=== PATIENT | female | born 1975 | race Caucasian/White ===

== ENCOUNTER 2018-09-22 01:31 | Outpatient (CLI) | payer OTHER, SELFPAY ==
[2018-09-22] MEDS: Gadoterate meglumine 20 ML VIAL 13 ML IVP (09:24)
[2018-09-22] MEDS: Normal Saline Flush 10 ML SYR IVP (09:25)
--- NOTE | 2018-09-22 09:43 | DI.MRI_ITS ---
SYMPTOM/DIAGNOSIS: FIBROIDS, D21.9, LLQ ABD MASS, R19.04, ? SARCOMA OR ADENOMYOSIS PELVIC MRI: MRI examination of the pelvis was performed according to the usual protocol including pre and post contrast T 1 fat sat imaging. No pelvic adenopathy identified. No free fluid in the pelvis. Visualized bowel is unremarkable. There are multiple ovarian follicles noted bilaterally as well as a 23 mm. in diameter left dominant follicle or functional cyst. The requisition raises the possibility of adenomyosis. The junctional zone of the myometrium appears to be less than 8 mm. in thickness and there is no evident adenomyosis. There are multiple uterine fibroids which are clearly defined as low signal masses on T 2 weighted imaging, the largest of these involve the lower uterine segment and measure about 29 mm. in diameter and 23 mm. in diameter. There is a 5-6 cm. in diameter, heterogeneous mass which is predominantly of intermediate to high signal on T 2 weighted imaging and shows significant enhancement on post contrast imaging. There are prominent feeding vessels. The findings as described may represent a degenerating fibroid. The possibility of sarcomatous transformation of a fibroid is not excluded on the basis of this examination. CONCLUSION: Multiple uterine fibroids, a dominant 5-6 cm. in diameter mass of the uterine fundus is noted and may represent degenerating fibroid, malignant transformation not excluded. No specific evidence of adenomyosis.
== END 2018-09-22 01:51 ==
PROVIDERS: PCP Family Medicine; Visit Provider Obstetrics & Gynecology Gynecology
DX: D25.9 Leiomyoma of uterus, unspecified (principal); R19.04 Left lower quadrant abdominal swelling, mass and lump
CPT/HCPCS: 72197

== ENCOUNTER 2019-07-04 01:16 | Outpatient (CLI) | payer OTHER, SELFPAY ==
--- NOTE | 2019-07-04 08:04 | DI.US_ITS ---
EXAM: US PELVIS TRANSVAGINAL CLINICAL HISTORY: Hx fibroids - 16 week uterus on exam, d25.9 leiomyoma of uterus TECHNIQUE: Ultrasound performed using standard protocol. Transabdominal and transvaginal exams wer e performed. COMPARISON: PELVIS TRANSVAG from 11/16/2017 FINDINGS: The uterus measures 15.2 by 6.2 x 8.4 cm. Multiple fibroids are noted. The largest fibroid is near the fundus measuring 7.2 cm in greatest dimension. This appears to have increased when compared wit h the previous exam. The endometrial stripe measures 8 millimeters in thickness. A small cyst is see n on the left ovary. The right ovary is unremarkable. There is no free fluid or hydronephrosis. IMPRESSION: Enlarged uterus with multiple fibroids. The fibroids have increased in size since the previous exam.
== END 2019-07-04 01:36 ==
PROVIDERS: PCP Family Medicine; Visit Provider Nurse Practitioner Family
DX: D25.9 Leiomyoma of uterus, unspecified (principal); N85.2 Hypertrophy of uterus; N83.292 Other ovarian cyst, left side
CPT/HCPCS: 76830; 76856

== ENCOUNTER 2019-07-26 01:45 | Outpatient (CLI) | payer OTHER, SELFPAY ==
--- NOTE | 2019-07-26 08:30 | DI.MAMMO_ITS ---
EXAM: MG MAMMO SCREENING CLINICAL HISTORY: screening, Z12.39 TECHNIQUE: Bilateral full field digital CC and MLO mammographic images were obtained with 3D tomosyn thesis and utilizing computer aided detection (CAD). COMPARISON: Available for comparison. FINDINGS: Masses/Architectural Distortion: None seen. Microcalcifications: No suspicious pleomorphic-type are seen. Skin Thickening/Nipple Retraction: None. IMPRESSION: 1. No significant interval change with no specific features of malignancy noted. 2. Unless there is more urgent need, screening mammography is recommended, as per [place] [employer] guidelines. ACR BI-RAD Category- 1 Negative Breast Density - Category D - Extremely dense The mammogram demonstrates the patient's breast tissue is dense. Dense breast tissue is very common a nd is not abnormal but dense breast tissue can make it harder to find cancer on a mammogram. Also, de nse breast tissue may increase their breast cancer risk. This information about the result of the [facility] mogram report was provided to the patient to raise their awareness. Use this report when you speak wi th the patient about their risks for breast cancer, which includes their family history. At that time , you may recommend for more screening tests (Ultrasound or MRI) as they might be useful based on the ir risk. A negative radiographic report should not delay biopsy if a dominant or clinically suspicious mass is present. Up to ten percent of cancers are not identified on mammography. A negative report may reinforce clinical impression. Adenosis and dense breasts may obscure an underlying neoplasm. False positive reports average 6 to 10%. Patient will receive a letter notifying them of these results.
== END 2019-07-26 02:05 ==
PROVIDERS: PCP Family Medicine; Visit Provider Nurse Practitioner Family
DX: Z12.31 Encounter for screening mammogram for malignant neoplasm of breast (principal)
CPT/HCPCS: 77063; 77067

== ENCOUNTER 2019-12-05 11:37 | Emergency (ER) | payer OTHER, SELFPAY ==
[2019-12-05 11:46] VITALS: BP 112/64; PULSE 88; RESP 16; TEMP 36.8; O2SAT 100
--- NOTE | 2019-12-05 12:09 | W.ED.GENAD ---
Discharge Plan Disposition Patient Disposition: HOME Condition: Good Discharge Details Chief Complaint: Nausea/Vomit/Diar Clinical Impression: Acute hypokalemia, Dehydration, Nausea & vomiting Primary Care Provider: Cristopher Quiroz ED Provider: Idalmis Presley Home Meds and New Rx's Prescriptions: New promethazine 25 mg tablet 25 mg PO QID PRN (Reason: nausea and vomiting) Qty: 14 RF: 0 Continued vitamin B complex [B Complex-Vitamin B12] Tablet 1 tab PO DAILY RF: 0 eyepromise PO DAILY RF: 0 cholecalciferol (vitamin D3) 2,000 UNIT tablet 2,000 unit PO DAILY RF: 0 clindamycin phosphate 1 EACH swab 1 ea Topical DAILY RF: 0 iron c 15 - 175 mg PO DAILY RF: 0 Mag Glycinate 100 MG tablet 200 mg PO DAILY RF: 0 Acid Gas Relief 1 PO .Q6HRS RF: 0 sennosides-docusate sodium [Senna-S] 8.6-50 mg tablet 2 tab PO BID RF: 0 hydromorphone 2 mg tablet 1 - 3 PO .Q3HRS PRNRF: 0 lorazepam [Ativan] 0.5 mg Tablet 0.25 mg PO BID RF: 0 gabapentin 100 mg capsule 100 mg PO TID RF: 0 ondansetron 4 mg tablet,disintegrating 4 mg PO .Q8HRS PRNRF: 0 Discharge Instructions Instructions: Dehydration (ED), Hypokalemia (ED), Acute Nausea and Vomiting (ED) Additional Instructions: Continue to encourage frequent sips for hydration. You may use the Phenergan as prescribed for the recurrence of your nausea or vomiting. Please follow postoperative instructions set forth by your surgeon. Please follow-up with your primary care surgeon within the next week for reevaluation. If you develop inability stay hydrated, fever/chills, severe abdominal pain or other new/worsening symptoms please seek care urgently once again. Referrals: Cristopher Quiroz [Primary Care Provider] - Discharge Data Discharge Date/Time-TO BE ENTERED AT DEPARTURE: 12/05/19 17:31 Medical Decision Making <Richard Dennison MD - Last Filed: 12/05/19 15:38> 44-year-old female presents from home. She is 1 week status post [place] [facility] [place]. She states has had nausea, loose stools since the time of discharge and has had decreased p.o. intake. She is feeling generally weak and deconditioned. She has not had significant abdominal pain. She has not had a fever. She does endorse some mild vomiting and bloating but has had good flatus and bowel movements. She arrives to the ER afebrile with unremarkable vital signs. Her exam is reassuring. Differential diagnosis includes deconditioning, electrolyte abnormalities, ileus, dehydration. I am doubtful of postoperative infection. IV access was established, screening laboratories obtained, patient given fluid bolus and antiemetic. Labs note hypokalemia of 2.7 which is supplemented in the ED. remainder of labs show white count of 11, hematocrit of 39, platelets 507. Sodium slightly low at 135, BUN 9, creatinine 0.6, albumin 2.7. Urine is notable for specific gravity of 1.030. Improving with antiemetics, fluid resuscitation, potassium replacement. Case will be signed out to Ms. Presley pending repeat evaluation and repeat electrolytes. Please see her note regarding final impression and disposition. Lab Data Lab results reviewed: Yes I reviewed the patient's lab results. Labs: Laboratory Results - last 24 hr 12/05/19 12/05/19 12:25 12:25 WBC 11.22 H RBC 4.35 Hgb 13.5 Hct 39.5 MCV 90.8 MCH 31.0 MCHC 34.2 RDW 12.1 Plt Count 507 H MPV 8.5 Immature Gran % See Differential Neutrophils % 73.0 Band Neutrophils % 9.0 Lymphocytes % 12.0 Monocytes % 3.0 Eosinophils % 0.0 Basophils % 0.0 Metamyelocytes % 3.0 Absolute Neutrophils 9.20 H Absolute Lymphocytes 1.35 Absolute Monocytes 0.34 Absolute Eosinophils 0.00 Absolute Basophils 0.00 Differential Comment Manual differential RBC Morphology Normal Sodium 135 L Potassium 2.7 L* Chloride 94 L Carbon Dioxide 27.0 Anion Gap 14.0 H BUN 9 Creatinine 0.63 Estimated GFR/1.73 m2 >= 60.00 Glucose 95 Calcium 8.9 Total Bilirubin 0.8 AST 17 ALT 16 Alkaline Phosphatase 174 H Total Protein 7.4 Albumin 2.7 L <BISI Greenwood - Last Filed: 12/05/19 18:34> Care transition myself and Dr. Dennison. Please see his initial note for history and work-up completed thus far. In brief, patient is a pleasant 44-year-old female who presents 1 week status post laparoscopic hysterectomy with nausea and vomiting his chief complaint. She continues to have some minimal, appropriate, abdominal discomfort. Has had minimal p.o. intake since then. Was found to be hypokalemic. 30 mg of potassium IV are currently infusing. Plan for repeat chemistry as well as potassium has been completed. I did reevaluate the patient. She does appear fatigued but reports feeling slightly improved. She has been having small bits of ricardo mayank and popsicles. She is reporting that her pain is increasing and feels that this is mainly position mediated. Will give IV acetaminophen to help with pain. Patient reports he is feeling much improved. Repeat labs reviewed after completion of her potassium. Potassium is now 3.5. Sodium has normalized. Patient I discussed care moving forward. She did respond well to Phenergan, will prescribe oral Phenergan. Encourage gentle steps. She was able to eat a popsicle and had some water while here. We did discuss advancement of diet as tolerated. We did discuss the brat diet. She will contact her primary care as well as her surgeon to schedule follow-up appointment. She was given strict return precautions. All of her questions and concerns were addressed and she is in agreement with plan. HPI <Richard Dennison MD - Last Filed: 12/05/19 15:38> General Mode of arrival: ambulatory. Date/Time Provider Initiated Documentation: 12/05/19 11:42. Limitations to Documentation: no limitations. Information obtained by: patient. History of Present Illness 44 year old F presents to the emergency department with the chief complaint of Weakness, dehydration, nausea 1 week after hysterectomy, described as moderate, Quality is described as dull, and is localized to the abdomen. Patient reports no radiation. Patient started experiencing this day(s) and it has been intermittent. No relieving factors improve symptom(s), Eating worsens symptoms . Patient did receive the following treatments prior to arrival, other (Ondansetron) Related Data Home Medications Medication Instructions Recorded Confirmed cholecalciferol (vitamin D3) 2,000 unit PO DAILY 03/28/13 12/05/19 clindamycin phosphate 1 ea TOPICAL DAILY script 03/28/13 12/05/19 Mag Glycinate 200 mg PO DAILY 04/16/15 12/05/19 Iron C 15 - 175 mg PO DAILY 06/24/17 12/05/19 eyepromise PO DAILY 06/26/19 vitamin B complex 1 tab PO DAILY 06/26/19 12/05/19 Acid Gas Relief 1 PO .Q6HRS 12/05/19 gabapentin 100 mg PO TID 12/05/19 12/05/19 hydromorphone 1 - 3 PO .Q3HRS PRN 12/05/19 lorazepam [Ativan] 0.25 mg PO BID 12/05/19 12/05/19 ondansetron 4 mg PO .Q8HRS PRN 12/05/19 12/05/19 promethazine 25 mg PO QID PRN #14 tab 12/05/19 sennosides-docusate sodium 2 tab PO BID 12/05/19 12/05/19 [Senna-S] Previous Rx's Medication Instructions Recorded promethazine 25 mg PO QID PRN #14 tab 12/05/19 Allergies Allergy/AdvReac Type Severity Reaction Status Date / Time shellfish derived Allergy Severe Swelling/Ed Verified 12/05/19 11:50 nimo General Stated Complaint: Abd Prob SCOTT: 3 Review of Systems <Richard Dennison MD - Last Filed: 12/05/19 15:38> Narrative: Some loose stool, some intermittent vomiting, decreased p.o. intake. Positive flatus. 6 systems reviewed and otherwise negative PFSH <Richard Dennison MD - Last Filed: 12/05/19 15:38> Medical History Fibroid uterus per US 2015 Surgical History Lazer eye surgery 2002 Family History Sister Mental disorder Grandmother Breast cancer paternal Other Diabetes Personal history of malignant neoplasm Social History Smoking/Tobacco Use Status: Former Tobacco Use Tobacco: How many years used: 5 Drug use: Never Substance use type: does not use Exam <Richard Dennison MD - Last Filed: 12/05/19 15:38> Narrative Exam Narrative: GEN: awake, alert, oriented 3. Pleasant, well groomed, interactive. HEAD: Normocephalic, atraumatic ENT:External ear exam unremarkable EYES: PERRL, EOMI NECK: Full ROM, no JAZÍMN, no menigismus CHEST/RESP: Nontender, clear to auscultation bilateral, no wheeze/rhonchi/rales CARDIOVASCULAR: RRR, no murmur, rub derrick. 2+ Rad pulse bilateral ABDOMEN: Soft, mild diffuse tenderness without rebound or guarding, healing umbilical and left and right lower quadrant surgical incisions, no mass. +Bowel sounds EXT: Full ROM, no edema, no rash Neuro: Grossly normal neurologic exam, conversant, interactive. Psych: Speech fluent, thoughts congruent, affect normal Course <Richard Dennison MD - Last Filed: 12/05/19 15:38> Vital Signs Vital signs: Vital Signs Temperature 36.8 C 12/05/19 11:46 Pulse 88 12/05/19 11:46 Respiratory Rate 16 12/05/19 11:46 Blood Pressure 112/64 12/05/19 11:46 Pulse Oximetry 100 12/05/19 11:46 Temperature 36.8 C 12/05/19 11:46 Temperature Source Skin 12/05/19 11:46 Pulse 88 12/05/19 11:46 Respiratory Rate 16 12/05/19 11:46 Respiratory Effort Non-Labored 12/05/19 11:46 Blood Pressure 112/64 12/05/19 11:46 Blood Pressure Position Sitting 12/05/19 11:46 Pulse Oximetry 100 12/05/19 11:46 Oxygen Delivery Method Room Air 12/05/19 11:46 Oxygen Flow Rate 0 12/05/19 11:46 Pain Level 1 12/05/19 11:46 Sign Out <Richard Dennison MD - Last Filed: 12/05/19 15:38> Sign Out Data: Sign Out Comment: Recheck/repeat chemistry after potassium supp. Last updated by Richard Dennsion MD at 12/05/19 15:26
[2019-12-05] MEDS: Normal Saline 1,000 ML 1000 ML IV (12:31)
[2019-12-05] MEDS: Ondansetron 4 MG/2 ML VIAL IVP ×2 (12:31→14:13)
[2019-12-05] MEDS: Normal Saline Flush 10 ML SYR IVP (12:37)
[2019-12-05 12:43] LABS: HCT 39.5 % (36.0-46.0); HGB 13.5 g/dL (12.0-15.5); Mean Corp. HGB Concentration 34.2 g/dL (32.0-36.0); Mean Corpuscular Volume 90.8 fL (80-95); Mean Platelet Volume 8.5 fL (8.0-11.0); Platelet Count 507 x1000/uL (130-400); RBC 4.35 m/cumm (4.00-5.20); RBC Distribution Width 12.1 % (11.7-14.6); White Blood Cell Count 11.22 k/cumm (4.4-10.8)
--- NOTE | 2019-12-05 13:00 | RT.EKG_ITS ---
APPROVED REPORT Exam: Resting ECG Patient Location: E HR:57 bpm ECG Measurements Heart Rate 57 AXIS MT 127 P 13 QRSd 87 QRS 60 QT 431 T 30 QTc 420 <Conclusion> regular, Sinus bradycardia...rate 57., qrs NARROW, NON SPECIFIC ST FLATTENING THROUGHOUT. NO ST ELEV.
[2019-12-05 13:07] LABS: ALT 16 U/L (14-59); AST 17 U/L (15-37); Albumin 2.7 g/dL (3.4-5.0); Alkaline Phosphatase 174 U/L (46-116); BUN 9 mg/dL (7-18); Bilirubin, Total 0.8 mg/dL (0.2-1.0); CREATININE 0.63 mg/dL (0.55-1.02); Calcium 8.9 mg/dL (8.5-10.1); Chloride 94 mmol/L (98-107); Glucose 95 mg/dL (74-106); Sodium 135 mmol/L (136-145); Total Protein 7.4 g/dL (6.4-8.2)
[2019-12-05 13:13] LABS: Absolute Lymphocyte Count 1.35 k/cumm (1.2-3.4); Absolute Monocyte Count 0.34 k/cumm (0.11-0.7); Diff Comment Manual Differential; Potassium 2.7 mmol/L (3.5-5.1); RBC Morphology Normal
[2019-12-05] MEDS: Normal Saline 500 ML 1000 ML IV (13:14)
[2019-12-05] MEDS: POTASSIUM CHLORIDE 20 MEQ/100 ML BAG 50 MEQ IVPB (13:22)
[2019-12-05 13:25] LABS: Bilirubin Small (Negative); Blood Trace-intact (Negative); Clarity Clear (Clear); Glucose Negative (Negative); Ketones >=160 mg/dL (Negative); Leukocyte Esterase Negative (Negative); Nitrite Negative (Negative); Specific Gravity >= 1.030 (1.005-1.025); Urobilinogen 0.2 EU/dL (Up TO 0.2)
[2019-12-05 13:39] LABS: Bacteria Rare HPF (Negative); C & S Indicated? No; Casts Negative LPF (Negative); Crystals Negative HPF (Negative); Epithelial Cells Rare HPF (Negative); Mucus Negative (Negative); WBC 0-2 HPF (0-5)
--- NOTE | 2019-12-05 14:59 | NUR.NOTE ---
Nursing Note: Patient reports nausea feels better and trying PO popsicle now.
[2019-12-05] MEDS: POTASSIUM CHLORIDE 10 MEQ/100 ML BAG 100 MEQ IVPB (15:29)
[2019-12-05] MEDS: ACETAMINOPHEN 1,000 MG/100 ML BTL 400 MG IVPB (16:12)
[2019-12-05 16:59] LABS: Anion Gap 10.8 mmol/L (3-11); BUN 8 mg/dL (7-18); CO2 26.2 mmol/L (21.0-32.0); CREATININE 0.58 mg/dL (0.55-1.02); Calcium 7.9 mg/dL (8.5-10.1); Chloride 99 mmol/L (98-107); Glucose 89 mg/dL (74-106); Potassium 3.5 mmol/L (3.5-5.1); Sodium 136 mmol/L (136-145)
[2019-12-05 17:21] VITALS: BP 121/58; PULSE 76; RESP 18; TEMP 37; O2SAT 100
[2019-12-05 17:31] VITALS: BP 121/58; PULSE 76; RESP 18; TEMP 37; O2SAT 100
== END 2019-12-05 17:31 | disposition home or self-care (01) ==
PROVIDERS: Emergency Medicine; Emergency Provider Physician Assistant; PCP Family Medicine
DX: E87.6 Hypokalemia (principal); E86.0 Dehydration; R11.2 Nausea with vomiting, unspecified; Y83.6 Removal of other organ (partial) (total) as the cause of abnormal reaction of the patient, or of later complication, without mention of misadventure at the time of the procedure
CPT/HCPCS: 36415; 80048; 80053; 93005; 96361; 96365; 96366; 96368; 96375; 96376; 99284; 81003; 81015; 85025; 93010; J0131; J2405; J3480

== ENCOUNTER 2020-05-14 02:15 | Outpatient (CLI) | payer OTHER, SELFPAY ==
[2020-05-14 13:09] LABS: FREE T4 1.02 ng/dL (0.76-1.46); TSH 0.76 uIU/mL (0.36-3.74)
[2020-05-14 13:23] LABS: Iron 172 ug/dL (50-170); Total Iron Binding Capacity 270 ug/dL (250-450); Transferrin Sat 64 % (15-50)
== END 2020-05-14 02:35 ==
PROVIDERS: PCP Family Medicine; Visit Provider Physician Assistant Medical
DX: L65.0 Telogen effluvium (principal)
CPT/HCPCS: 36415; 83540; 83550; 84439; 84443

== ENCOUNTER 2020-10-07 02:00 | Outpatient (CLI) | payer OTHER, SELFPAY ==
--- NOTE | 2020-10-07 12:22 | DI.MAMMO_ITS ---
Exam(s) MAMMO SCREENING EXAM: MAMMO SCREENING CLINICAL HISTORY: screening,Z12.39. TECHNIQUE: Bilateral full field digital CC and MLO mammographic images were obtained with 3D tomosyn thesis and utilizing computer aided detection (CAD). COMPARISON: 2016 through 2019 FINDINGS: Masses/Architectural Distortion: None seen. Microcalcifications: No suspicious pleomorphic-type are seen. Skin Thickening/Nipple Retraction: None. IMPRESSION: 1. No significant interval change with no specific features of malignancy noted. 2. Unless there is more urgent need, annual screening mammography is recommended, as per [place] [employer] guidelines. BI-RADS Category 1-negative Breast Density - Category D - extremely dense Breast Density Category D: The mammogram demonstrates the patient's breast tissue is dense. Dense jackeline ast tissue is very common and is not abnormal but dense breast tissue can make it harder to find canc er on a mammogram. Also, dense breast tissue may increase their breast cancer risk. This information about the result of the mammogram report was provided to the patient to raise their awareness. Use th is report when you speak with the patient about their risks for breast cancer, which includes their f amily history. At that time, you may recommend for more screening tests (Ultrasound or MRI) as they m ight be useful based on their risk. A negative radiographic report should not delay biopsy if a dominant or clinically suspicious mass is present. Up to ten percent of cancers are not identified on mammography. A negative report may reinforce clinical impression. Adenosis and dense breasts may obscure an underlying neoplasm. False positive reports average 6 to 10%.
== END 2020-10-07 02:20 ==
PROVIDERS: PCP Family Medicine; Visit Provider Nurse Practitioner Family
DX: Z12.31 Encounter for screening mammogram for malignant neoplasm of breast (principal)
CPT/HCPCS: 77063; 77067

== ENCOUNTER 2022-09-07 02:43 | Outpatient (CLI) | payer OTHER, SELFPAY ==
[2022-09-07 08:57] LABS: Absolute Basophil Count 0.08 10^3/uL (0.0-0.2); Absolute Eosinophil Count 0.41 10^3/uL (0.0-0.7); Absolute Lymphocyte Count 1.75 10^3/uL (1.2-3.4); Absolute Monocyte Count 0.42 10^3/uL (0.1-0.8); Absolute Neutrophil Count 2.48 10^3/uL (1.2-6.7); Basophils % 1.6; HCT 42.2 % (36.0-46.0); HGB 14.4 g/dL (11.2-15.7); MCH 30.9 pg (27.0-33.0); MCHC 34.1 % (32.0-36.0); MCV 91 fL (80-95); MPV 9.6 fL (8.0-11.0); Monocytes % 8.2; Neutrophils % 48.2; Platelet Count 263 10^3/uL (130-400); RBC 4.66 10^6/uL (3.93-5.22); RDW 11.7 % (11.7-14.6); RDW-SD 38.7 fL; WBC 5.14 10^3/uL (4.4-10.8)
[2022-09-07 10:18] LABS: ALT 30 U/L (14-59); AST 17 U/L (15-37); Albumin 4.2 g/dL (3.4-5.0); Alkaline Phosphatase 43 U/L (46-116); Anion Gap 6.9 mmol/L (3-11); BUN 9 mg/dL (7-18); Bilirubin, Total 0.6 mg/dL (0.2-1.0); CO2 29.1 mmol/L (21.0-32.0); CREATININE 0.7 mg/dL (0.55-1.02); Calcium 9.4 mg/dL (8.5-10.1); Calculated LDL 125 mg/dL (<100); Chloride 104 mmol/L (98-107); Cholesterol 226 mg/dL (<200); Estimated GFR 107.95 (mL/min/1.73m2); Glucose 90 mg/dL (74-106); HDL Cholesterol 71 mg/dL (40-60); Potassium 3.7 mmol/L (3.5-5.1); Sodium 140 mmol/L (136-145); TSH (W/Ref FT4) 0.82 uIU/mL (0.36-3.74); Total Protein 7.8 g/dL (6.4-8.2); Triglyceride 150 mg/dL (<150)
== END 2022-09-07 02:44 | disposition home or self-care (01) ==
LOC: LBO 02:43
PROVIDERS: PCP Nurse Practitioner; Visit Provider Nurse Practitioner
DX: F41.8 Other specified anxiety disorders (principal); J45.909 Unspecified asthma, uncomplicated; R79.89 Other specified abnormal findings of blood chemistry; Z13.220 Encounter for screening for lipoid disorders
CPT/HCPCS: 36415; 80053; 80061; 84443; 85025

== ENCOUNTER 2022-09-30 01:50 | Outpatient (CLI) | payer OTHER, SELFPAY ==
--- NOTE | 2022-09-30 06:45 | DI.MAMMO_ITS ---
Exam(s) MAMMO SCREENING EXAM: MAMMO SCREENING CLINICAL HISTORY: screening,z12.39. TECHNIQUE: Bilateral full field digital CC and MLO mammographic images were obtained with 3D tomosyn thesis and utilizing computer aided detection (CAD). COMPARISON: Prior mammograms were reviewed. FINDINGS: The fibroglandular tissue pattern the breasts is again noted quite dense, this decreasing the sensiti vity of the mammogram for finding hidden underlying lesions. In the right breast there is a small well-defined benign-appearing nodule again noted which has appea emi of a small benign intramammary lymph node and which is unchanged from prior mammograms. There are no obvious new spiculated masses nor new malignant appearing microcalcification groups. Be nign-appearing microcalcifications in the right breast are again noted. There is no significant architectural distortion nor skin thickening-retraction. IMPRESSION: Very dense bilateral fibroglandular tissue. Stable benign-appearing findings. No obvious radiograph ic evidence malignancy. Given the density of this patient's fibroglandular tissue it may be prudent to proceed with bilateral screening ultrasound. BI-RADS Category 2 - Benign Findings Breast Density - Category D - Extremely dense Breast density Category C or D implies that the patient has dense breast tissue. Dense breast tissue can make it harder to find cancer on a mammogram. Dense breast tissue is also associated with an incr eased risk of breast cancer. This information about the result of the mammogram report was provided to the patient to raise their awareness. Use this report when you speak with the patient about their risks for breast cancer, which includes their family history. At that time, you may recommend additional screening tests (Ultrasoun d or MRI) as these tests may add significant information. A negative radiographic report should not delay biopsy if a dominant or clinically suspicious mass is present. Up to ten percent of cancers are not identified on mammography. A negative report may reinforce clinical impression. Adenosis and dense breasts may obscure an underlying neoplasm. False positive reports average 6 to 10%. Patient will receive a letter notifying them of these results.
== END 2022-09-30 02:10 ==
LOC: DI 01:50
PROVIDERS: PCP Nurse Practitioner; Visit Provider Nurse Practitioner
DX: Z12.31 Encounter for screening mammogram for malignant neoplasm of breast (principal)
CPT/HCPCS: 77063; 77067

== ENCOUNTER 2024-02-07 18:26 | Outpatient (CLI) | payer OTHER, SELFPAY ==
--- NOTE | 2024-02-07 18:15 | RT.EKG_ITS ---
APPROVED REPORT Exam: Resting ECG Reason for Exam: SOB with exertion Patient Location: O HR:49 bpm ECG Measurements Heart Rate 49 AXIS OK 150 P 66 QRSd 85 QRS 50 QT 463 T 51 QTc 418 Conclusion Sinus bradycardia...rate< 50 Otherwise normal ECG
== END 2024-02-07 18:27 | disposition home or self-care (01) ==
LOC: DI.KIM 18:27
PROVIDERS: PCP Nurse Practitioner; Visit Provider Nurse Practitioner
DX: R06.02 Shortness of breath (principal)
CPT/HCPCS: 93010

== ENCOUNTER 2024-02-08 03:07 | Outpatient (CLI) | payer OTHER, SELFPAY ==
[2024-02-08 11:07] LABS: HCT 43.8 % (36.0-46.0); HGB 14.6 g/dL (11.2-15.7); MCH 30.8 pg (27.0-33.0); MCHC 33.3 % (32.0-36.0); MCV 92 fL (80-95); MPV 9.3 fL (8.0-11.0); Platelet Count 294 10^3/uL (130-400); RBC 4.74 10^6/uL (3.93-5.22); RDW 11.6 % (11.7-14.6); RDW-SD 40.1 fL; WBC 6.57 10^3/uL (4.4-10.8)
[2024-02-08 11:59] LABS: Anion Gap 12.6 mmol/L (3-11); BUN 15 mg/dL (7-18); CO2 26.4 mmol/L (21.0-32.0); CREATININE 0.6 mg/dL (0.55-1.02); Calcium 9.7 mg/dL (8.5-10.1); Chloride 99 mmol/L (98-107); Estimated GFR 110.65 (mL/min/1.73m2); Glucose 89 mg/dL (74-106); Potassium 3.7 mmol/L (3.5-5.1); Sodium 138 mmol/L (136-145); TSH (W/Ref FT4) 0.99 uIU/mL (0.36-3.74); Vitamin B12 653 pg/mL (193-986)
[2024-02-09 11:07] LABS: Lyme Ab w Rflx to Lyme Confirm Negative (Negative)
[2024-02-11 00:36] LABS: Anaplasma phagocytophilum Negative (Negative); B. miyamotoi PCR Negative (Negative); Babesia divergens/MO-1 Negative (Negative); Babesia duncani Negative (Negative); Babesia microti Negative (Negative); Ehrlichia chaffeensis Negative (Negative); Ehrlichia ewingii/canis Negative (Negative); Ehrlichia muris eauclairensis Negative (Negative)
== END 2024-02-08 03:08 | disposition home or self-care (01) ==
LOC: LBO 03:08
PROVIDERS: PCP Nurse Practitioner; Visit Provider Nurse Practitioner
DX: R06.02 Shortness of breath (principal); F41.9 Anxiety disorder, unspecified; R53.83 Other fatigue
CPT/HCPCS: 36415; 80048; 82306; 85027; 87798; 82607; 84443; 86618

== ENCOUNTER 2024-02-13 02:39 | Outpatient (CLI) | payer OTHER, SELFPAY ==
--- NOTE | 2024-02-13 06:45 | DI.MAMMO_ITS ---
Exam(s) MAMMO SCREENING EXAM: MAMMO SCREENING CLINICAL HISTORY: screening, Z12.39 TECHNIQUE: Bilateral full field digital CC and MLO mammographic images were obtained with 3D tomosyn thesis and utilizing computer aided detection (CAD). COMPARISON: Available for comparison. FINDINGS: Masses/Architectural Distortion: None seen. Microcalcifications: No suspicious pleomorphic-type are seen. Skin Thickening/Nipple Retraction: None. IMPRESSION: 1. No significant interval change with no specific features of malignancy noted. 2. Unless there is more urgent need, screening mammography is recommended, as per [place] [employer] guidelines. BI-RADS Category 1 - Negative Breast Density - Category D - Extremely dense Breast density category C or D implies that the patient has dense breast tissue. Dense breast tissue is very common and is not abnormal but dense breast tissue can make it harder to find cancer on a ma mmogram. Also, dense breast tissue may increase their breast cancer risk. This information about the result of the mammogram report was provided to the patient to raise their awareness. Use this report when you speak with the patient about their risks for breast cancer, which includes their family hist ory. At that time, you may recommend for more screening tests (Ultrasound or MRI) as they might be us eful based on their risk. A negative radiographic report should not delay biopsy if a dominant or clinically suspicious mass is present. Up to ten percent of cancers are not identified on mammography. A negative report may reinforce clinical impression. Adenosis and dense breasts may obscure an underlying neoplasm. False positive reports average 6 to 10%. Patient will receive a letter notifying them of these results.
== END 2024-02-13 02:59 ==
LOC: DI 02:39
PROVIDERS: PCP Nurse Practitioner; Visit Provider Nurse Practitioner
DX: Z12.31 Encounter for screening mammogram for malignant neoplasm of breast (principal)
CPT/HCPCS: 77063; 77067

== ENCOUNTER 2024-03-26 10:37 | Day surgery (SDC) | payer OTHER, SELFPAY ==
--- NOTE | 2024-03-25 15:18 | W.PM.DSUDISC ---
Date of service: 03/26/24 Time of Service: 12:37 Discharge Plan Disposition Patient Disposition: Home Condition: Good Discharge Details Reason For Visit: EGD Attending Provider: Yasmani Mooney Primary Care Provider: Nae Carrasquillo Home Meds and New Rx's Prescriptions: Continued eyepromise 1 cap PO DAILY minoxidil 2.5 mg tablet 0.625 mg PO DAILY lorazepam [Ativan] 0.5 mg tablet 0.5 mg PO BID PRN (Reason: anxiety) Qty: 30 1RF cholecalciferol (vitamin D3) 2,000 UNIT tablet 2,000 unit PO DAILY Rx Instructions: 5000u daily clindamycin phosphate 1 EACH swab 1 ea Topical DAILY Rx Instructions: 3 to 4 times per week tretinoin 0.05 % cream 1 applic TOPICAL DIRECTED Discharge Instructions Instructions: Hiatal hernia Additional Instructions: Sridevi, it was very nice seeing you today, and I hope you are comfortable during the procedure. Everything went very smoothly. You have a large hiatal hernia. The hiatal hernia occurs when part of your stomach slips above the diaphragm, which is the muscle that divides the chest from the abdomen. This can present as a variety of different symptoms, but swallowing trouble is a common feature. Hiatal hernias are typically graded 1 through 4 based on the size and amount of stomach that is moving across the opening. I estimate yours to be grade 4. I suspect this is the source of your symptoms. I did do some biopsies of the stomach to rule out other causes of swallowing symptoms. Those biopsies will take about a week or so to get the results. Once I have those, I will be in touch. In the meantime, more than happy to place a referral to some local surgeons in the area for their opinion regarding your hiatal hernia. 1. If tolerated, consume a soft, low fiber diet for 1-2 days. [address] Do not drive, drink alcohol, operate machinery, make critical decisions, or do activities that require coordination or balance for 24 hours. 3. You may experience a sore throat for 24 to 48 hours. You may use throat lozenges or gargle with warm salt water to relieve the discomfort. 4. Because air was put into your stomach during the procedure, you may experience some belching. 5. Go directly to the emergency room if you notice any of the following: Develop chills (warm to touch), or if you have a thermometer and your temperature is above 101 Difficulty breathing or difficultly swallowing Persistent vomiting Severe abdominal pain, other than gas cramps Severe chest pain Black, tarry stools Any bleeding ? exceeding one tablespoon 6. Call your physician if the site where your intravenous was started becomes red, swollen, painful, and warm to touch. 7. Your physician has reviewed your pre-procedure medications. Please continue to take those medications as previously ordered. You will be given specific information/education regarding any changes to your medications before leaving. Activity:: Activity as Tolerated Diet:: As Tolerated Discharge Orders Discharge Orders: Discharge Order (Routine); Ordered 03/25/24 Ordered By: Yasmani Mooney DS: Diagnosis Discharge Diagnosis (1) Dysphagia: Status: Acute Asessment and Plan: Hiatal hernia; follow-up on biopsy results
--- NOTE | 2024-03-25 15:20 | ENDO_ITS ---
Date of service: 03/26/24 Time of Service: 12:40 Endoscopy Report DATE OF PROCEDURE: 03/26/24 PRE-OP DIAGNOSIS: dysphagia POST-OP DIAGNOSIS: other (Hiatal hernia) PROCEDURE: EGD with biopsies SURGEON: Yasmani Mooney ANESTHESIA TYPE: General:No Airway ESTIMATED BLOOD LOSS: 5 PATHOLOGY: other (Random biopsies of gastric antrum and body) COMPLICATIONS: None DISPOSITION: same day INDICATIONS: Sridevi is a 48 year old woman with dysphagia PROCEDURE START TIME: 12:22 PROCEDURE END TIME: : FINDINGS: Grade 4 hiatal hernia PROCEDURE DESCRIPTION: After the initiation of anesthesia, and with the assistance of a bite block, I advanced a standard gastroscope through the mouth past the hypopharynx and into the esophagus.? Under the direct vision of the scope, I advanced down the esophagus towards the stomach.? The upper and midesophagus were totally normal. There is no evidence of any rings or webs. I saw no evidence of any diverticula or esophageal inlet patches. At the lower esophagus, there were some features that seem consistent with a hiatal hernia. The GE junction measured 37 cm from the incisors. Narrowband imaging was used to assist with the analysis here. I did not see any signs of any Mcgill's esophagus. I advanced down into the stomach and insufflated into the rugae were obliterated. I performed retroflexion. There is a Hill grade 4 hiatal hernia. There is no evidence of any ulceration or irritation around the edge of the diaphragm hiatus. I ad vanced down around the incisura angularis to the antrum and pylorus. These were normal and healthy. I advanced across the pylorus into the duodenum and as far as the third portion. The duodenum was all totally normal. I brought the camera back up into the stomach, and perform some nondirected cold forceps biopsies of the gastric antrum and body to rule out Helicobacter pylori as a source of the symptoms. I then emptied the stomach, brought the camera out along the length of the esophagus 1 last time. No other abnormalities were appreciated.
[2024-03-26 11:01] VITALS: BP 118/78; PULSE 65; RESP 16; TEMP 36.4; O2SAT 99
--- NOTE | 2024-03-26 11:24 | ANES.PREOP_ITS ---
General Info Date of Service Date Performed: 03/26/24 Height: 5 ft 5.5 in Weight: 64.4 kg Body Mass Index (BMI): 23.2 Surgical Procedure: Operation Date: 03/26/24 12:05 Proposed Procedure Side Surgeon p Gastroscopy Yasmani Mooney MD Meds Allergies and Home Medications Allergies Allergy/AdvReac Type Severity Reaction Status Date / Time shellfish derived Allergy Severe Swelling/Ed Verified 03/26/24 10:51 nimo Home Medication ?Medication ?Instructions ?Recorded cholecalciferol (vitamin D3) 50 2,000 unit PO DAILY 03/28/13 mcg (2,000 unit) tablet clindamycin phosphate 1 % topical 1 ea topical DAILY 03/28/13 swab eyepromise 1 cap PO DAILY 06/26/19 minoxidil 2.5 mg tablet 0.625 mg PO DAILY 08/12/22 lorazepam 0.5 mg tablet (Ativan) 0.5 mg PO BID PRN anxiety #30 tabs 02/07/24 tretinoin 0.05 % topical cream 1 applic topical DIRECTED 03/23/24 Current Visit Medications: Current Medications Generic Name Dose Route Start Last Admin Trade Name Freq PRN Reason Stop Dose Admin Ringer's Solution 1,000 mls @ 80 mls/hr 03/26/24 06:00 IV 03/26/24 23:59 [facility] IV Miscellaneous Supplies 1 each 03/26/24 06:00 Iv Access IV 03/26/24 23:59 DIRECTED KAYLA Ondansetron HCl 4 mg 03/25/24 15:21 Ondansetron 4 Mg/2 Ml Vial IVP 04/24/24 15:20 Q4H PRN PRN Nausea / Vomiting Sodium Chloride 0 ml 03/26/24 06:00 Normal Saline Flush 10 Ml Syr IV 03/26/24 23:59 PRN PRN Sodium Chloride 0 ml 03/26/24 06:00 Normal Saline 10 Ml Vial IJ 03/26/24 23:59 DIRECTED PRN Sterile Water 0 ml 03/26/24 06:00 Water,Injection,Sterile 10 Ml Vial IJ 03/26/24 23:59 DIRECTED PRN PFSH Active Problems Active Problems: Problem Status Onset Code Dysphagia Acute R13.10 Medical History Medical History Fibroid uterus per US 2015 Surgical History Surgical History S/P laparoscopic hysterectomy 11/2019 at [facility] [place] for fibroid uterus Lazer eye surgery 2002 Tobacco Smoking/Tobacco Use Status: Former Tobacco Use Passive smoking exposure: No Alcohol Alcohol Intake: current Alcohol intake frequency: a few times a month Substance Use Substance use: Never Substance use type: does not use Vital Signs and Lab Results Vital Signs Most Recent Vital Signs in EMR: Most Recent Vital Signs Temp Pulse Resp BP Pulse Ox 36.4 C L 65 16 118/78 99 03/26/24 11:01 03/26/24 11:01 03/26/24 11:01 03/26/24 11:01 03/26/24 11:01 Lab Results Blood Type / Crossmatch: No Data to Display Complete Blood Count: No Data to Display Complete Metabolic Panel: No Data to Display Liver Function Panel: No Data to Display Coagulation Panel: No Data to Display Cardiac Panel: No Data to Display Arterial Blood Gas: No Data to Display Venous Blood Gas: No Data to Display Pancreas Panel: No Data to Display Thyroid Panel: No Data to Display Infectious Disease: No Data to Display Blood Cultures: No Data to Display Toxicology Panel: No Data to Display Panel: No Data to Display Imaging and Studies Imaging and Studies Study information below may be from another EMR and interpreted by another provider. Please see original notes in EMR for more complete details. EKG Summary: EKG PATIENT NAME: Sridevi Suarez UNIT #: [id number] ORDERING PROVIDER: Tena Nava NP PRIMARY CARE PROVIDER: TENA NAVA NP DATE/TIME OF SERVICE: 02/07/24 1721 : 1975 PERFORMING LOCATION: [facility] APPROVED REPORT Exam: Resting ECG Reason for Exam: SOB with exertion Patient Location: O HR:49 bpm ECG Measurements Heart Rate 49 AXIS PA 150 P 66 QRSd 85 QRS 50 QT 463 T51 QTc 418 Conclusion Sinus bradycardia...rate< 50 Otherwise normal ECG <Electronically signed by SARINA GLASS MD in [facility]> E-Sign Date: 02/09/24 E-Sign Time: 08 Anesthesia Assessment and Plan Anesthesia History Personal History: No History of Anesthesia Complications Family History: No Family History of Anesthesia Complications Exercise Tolerance Exercise Tolerance: Metabolic Equivalents>4 Pertinent Negatives Pertinent Negatives: No Symptoms of GERD, No Major Cardiovascular Symptoms or Complaints, No Major Pulmonary Symptoms or Complaints and No History of CVA/TIA Cardiac & Pulmonary Exam Cardiac Exam: Normal S1/S2 Heart Sounds Pulmonary Exam: Clear Bilateral Breath Sounds Implantable Cardiac Device Does patient have a Pacemaker or an ICD?: No Airway Exam Known Difficult Airway: No Mallampati Class: 1 Mouth Opening: Normal (> 3cm) Thyromental Distance: Greater than 3 cm Neck Range of Motion: Full ROM Neck Circumference: Normal Teeth Condition: Normal Dentition ASA Classification ASA Score: ASA 2 Emergency Case?: No NPO Status NPO Status: NPO Clears >2 hours, Solids >8 hours Status Status: History of Hysterectomy Anesthesia Plan Resuscitation Status: Full Code Anesthesia Technique: General Anesthesia Airway Planned: Natural Airway Monitors Used: Standard Monitors
[2024-03-26 11:53] VITALS: BMI 23.2
[2024-03-26] MEDS: Normal Saline Flush 10 ML SYR IV (12:00)
[2024-03-26] MEDS: Lactated Ringers 500 ML 30 ML IV (12:05)
--- NOTE | 2024-03-26 12:25 | STOM_PTH ---
PATIENT: Sridevi Suarez LOC: [facility] U#:[id number] AGE/SX: 48/F ROOM: RE03/26/[address]: Yasmani Mooney MD : 1975 BED: DIS: 03/26/2024 SPEC #: [id number] RECD: 03/26/24 13:01 STATUS: HARSHA MADDEN #: [id number] ALEXANDRO: 03/26/24 12:[address]: Yasmani Mooney DEPT: Surgical Specimen RECD BY: Taylor Lan ENTERED: 03/26/24 13:02 SP TYPE: STOMACH OTHR DR: Nae Carrasquillo APRN Tissues: 1 - STOMACH BIOPSY 2 - STOMACH BIOPSY Procedures: GROSS AND MICRO LEVEL 4 Comments: [id number]
[2024-03-26 12:38] VITALS: BP 100/66; PULSE 71; RESP 16; TEMP 36.8; O2SAT 95
[2024-03-26 13:05] VITALS: BP 106/77; PULSE 51; RESP 18; TEMP 36; O2SAT 98
--- NOTE | 2024-03-26 13:43 | W.ANESPOSTOP ---
Postoperative Evaluation Date, Time and Location Date Performed: 03/26/24 Time Performed: 12:40 Patient Location: Day Surgery Unit Vital Signs Most Recent Imported Vital Signs: Most Recent Vital Signs Temp Pulse Resp BP Pulse Ox 36 C L 51 L 18 106/77 98 03/26/24 13:05 03/26/24 13:05 03/26/24 13:05 03/26/24 13:05 03/26/24 13:05 Pain Score Most Recent Pain Score: Most Recent Pain Score Pain Level 0 03/26/24 13:05 Assessment Mental Status: Awake (Alert & Oriented to Patient Baseline) Airway and Respiratory Function: Patent airway with normal (patient baseline) respiratory exam Cardiovascular Function: Hemodynamically Stable Hydration Status: Adequately Hydrated Nausea & Vomiting: No Nausea or Vomiting Pain: Pt. Denies Any Pain Peripheral Nerve Block: Patient did not receive a nerve block
== END 2024-03-26 13:30 | disposition home or self-care (01) ==
LOC: SUR 10:38
PROVIDERS: PCP Nurse Practitioner; Visit Provider Surgery
PROC: 0DJ68ZZ Inspection of Stomach, Via Natural or Artificial Opening Endoscopic (ICD-10-PCS; CPT 43235; principal; 2024-03-26 12:00)
DX: R13.10 Dysphagia, unspecified (principal); K44.9 Diaphragmatic hernia without obstruction or gangrene
CPT/HCPCS: 43239; 88305; J2250; J2704

== ENCOUNTER 2024-06-25 14:21 | Outpatient (CLI) | payer OTHER, SELFPAY ==
[2024-06-25 11:35] LABS: TSH (W/Ref FT4) 0.76 uIU/mL (0.36-3.74)
[2024-06-25 19:04] LABS: Estradiol 67 pg/mL (See Note); FSH 4.3 mIU/mL (See Note)
== END 2024-06-25 14:22 | disposition home or self-care (01) ==
LOC: LBO 14:21
PROVIDERS: PCP Nurse Practitioner; Visit Provider Obstetrics & Gynecology
DX: N95.1 Menopausal and female climacteric states (principal)
CPT/HCPCS: 36415; 82670; 83001; 84443

== ENCOUNTER 2025-02-15 03:53 | Outpatient (CLI) | payer OTHER, SELFPAY ==
--- NOTE | 2025-02-15 11:45 | DI.MAMMO_ITS ---
Exam(s) MAMMO SCREENING EXAM: MAMMO SCREENING CLINICAL HISTORY: screening. TECHNIQUE: Bilateral full field digital CC and MLO mammographic images were obtained with 3D tomosynthesis and utilizing computer aided detection (CAD). COMPARISON: 2016 through 2023 FINDINGS: Masses: None seen. Architectural Distortion: None seen. Microcalcifications: No suspicious pleomorphic-type are seen. Skin Thickening/Nipple Retraction: None. IMPRESSION: 1. No significant interval change with no specific features of malignancy noted. 2. Unless there is more urgent need, annual screening mammography is recommended, as per [employer] guidelines. BI-RADS Category 1-negative Breast Density - Category D - The breast are extremely dense, which lowers the sensitivity of the mammography. Breast density Category C or D implies that the patient has dense breast tissue. Dense breast tissue can make it harder to find cancer on a mammogram. Dense breast tissue is also associated with an increased risk of breast cancer. This information about the result of the mammogram report was provided to the patient to raise their awareness. Use this report when you speak with the patient about their risks for breast cancer, which includes their family history. At that time, you may recommend additional screening tests (Ultrasound or MRI) as these tests may add significant information. A negative radiographic report should not delay biopsy if a dominant or clinically suspicious mass is present. Up to ten percent of cancers are not identified on mammography. A negative report may reinforce clinical impression. Adenosis and dense breasts may obscure an underlying neoplasm. False positive reports average 6 to 10%. Patient will receive a letter notifying them of these results.
== END 2025-02-15 04:13 ==
LOC: DI 03:53
PROVIDERS: PCP Nurse Practitioner; Visit Provider Obstetrics & Gynecology
DX: Z12.31 Encounter for screening mammogram for malignant neoplasm of breast (principal)
CPT/HCPCS: 77063; 77067